=== PATIENT | male | born 1945 | race Caucasian/White ===

== ENCOUNTER → 2021-01-05 | Outpatient (CLI) | payer MEDICARE ==
--- NOTE | 2021-01-05 16:05 | CONS ---
CONSULTATION DATE OF SERVICE: 01/05/2021 This 75-year-old gentleman had been evaluated in [facility] for obstructive sleep apnea-hypopnea syndrome. HISTORY OF PRESENT ILLNESS/SLEEP-WAKE EVALUATION: Recently patient had a home sleep apnea test in another institution in October of this year, which showed severe obstructive sleep apnea-hypopnea syndrome with apnea-hypopnea index 51.1, and oxygen desaturation to 77%. The patient usual sleep schedule from 10 p.m. to 7-9 a.m. Sometimes he has problems with falling asleep. He snores and has episodes of stopped breathing during sleep. He grinds his teeth. He has episodes of gasping for air. Also patient has kicking movements during the sleep according to his . During the day, he feels very sleepy and may take naps whole day according to his . [place] Sleepiness Scale is a very high range of 17. No history of hypnagogic all hallucinations, cataplexy or sleep paralysis. PAST MEDICAL HISTORY: Positive for depression, coronary artery disease, diabetes mellitus, acid reflux. PAST SURGICAL HISTORY: CABG and stent insertions to coronary arteries, left knee replacement. MEDICATIONS: Atorvastatin 40 mg 3 times a week, allopurinol 300 mg once a day, bupropion 150 mg twice a day, 200 mg once a day, Januvia 50 mg once a day, isosorbide 30 mg once a day, clopidogrel 75 mg once a day, cyclobenzaprine 10 mg once a day, 325 mg up to 2 times a day, 20 mg patch started recently. SOCIAL HISTORY: Negative for smoking or using alcohol at the present time. FAMILY HISTORY: REVIEW OF SYSTEMS: Multiple awakenings from sleep, sleepiness during the day. No fevers. No double vision. No recent chest pain. No shortness of breath. No abdominal pain. No bleeding episodes. No blood in the urine. No seizure episodes. PHYSICAL EXAMINATION: GENERAL: gentleman without distress. VITAL SIGNS: BP 121/81, HR 76, RR around 20, height 5 feet 10 inches, weight 254.0, temperature 97.7, oxygen saturation at room air 94%, body mass index 36.5. HEENT: PERRLA, EOMI. Oropharynx extremely low position of soft palate. Mallampati 4. NECK: Wide neck 19-1/2 inches in circumference. LUNGS: Clear to percussion and to auscultation. Good air exchange. No wheezing or rhonchi. HEART: S1, S2 regular. No murmurs, gallops, or rubs. ABDOMEN: Obese. EXTREMITIES: No clubbing or cyanosis. ASSISTANT TEACHER PRIMARY: Awake, alert, and oriented X3. Cranial nerves 2 to 7 intact. There is no fasciculation or atrophy. noted. No focal deficits observed. Patient walked with a walker. IMPRESSION: 1. Severe obstructive sleep apnea-hypopnea syndrome by results of home sleep apnea test in October 2020 in another institution. The patient has multiple awakenings from sleep, extremely low position of soft palate, wide neck, significant daytime sleepiness. 2. Obesity. 3. Restless leg symptoms. 4. Possible periodic limb movements. 5. Depression. 6. Diabetes mellitus. 7. Coronary artery disease, status post CABG and stent insertion. 8. Acid reflux. 9. Status post left knee replacement. 10.Back problems. 11.History of basal cell carcinoma of the skin of the hand, treated surgically. PLAN: 1. CPAP/BiPAP titration for correction of respiratory abnormalities during sleep and to check for possible periodic limb movements. 2. Preferable position during sleep on the side. 3. No driving if patient feels any sleepiness. 4. I will see patient for follow up visit to explain results of testing and following plan. Thank you very much for referring this patient for consultation. Sincerely, Ayaz Rabago MD, PhD, FAASM Diplomat of [employer] [employer] Eclectic Doctor of [facility] [place] MMODL / IJN: [id number] /
== END ==
LOC: SLEEP 10:10
PROVIDERS: ATTEND Internal Medicine
DX: G47.33 Obstructive sleep apnea (adult) (pediatric) (principal); E66.9 Obesity, unspecified; G25.81 Restless legs syndrome; F32.9 Major depressive disorder, single episode, unspecified; E11.9 Type 2 diabetes mellitus without complications; K21.9 Gastro-esophageal reflux disease without esophagitis; I25.10 Atherosclerotic heart disease of native coronary artery without angina pectoris; Z68.36 Body mass index [BMI] 36.0-36.9, adult; Z95.1 Presence of aortocoronary bypass graft; Z96.652 Presence of left artificial knee joint; Z85.828 Personal history of other malignant neoplasm of skin; Z95.5 Presence of coronary angioplasty implant and graft
CPT/HCPCS: 99211

== ENCOUNTER → 2021-05-29 | Outpatient (CLI) | payer MEDICARE | END | disposition home or self-care (01) | LOC: LABWHC1 15:49 | PROVIDERS: ATTEND Psychiatry & Neurology Neurology | DX: Z01.812 Encounter for preprocedural laboratory examination (principal); Z20.822 Contact with and (suspected) exposure to COVID-19 | CPT/HCPCS: U0003; U0005 ==

== ENCOUNTER → 2021-05-31 | Outpatient (CLI) | payer MEDICARE ==
--- NOTE | 2021-05-31 20:25 | SFUN ---
SLEEP CENTER FOLLOW UP NOTE DATE OF SERVICE: 05/31/2021 INTERVAL HISTORY: 75-year-old gentleman has been followed in Sleep Center for treatment of obstructive sleep apnea-hypopnea syndrome. This is the first visit after patient received new CPAP equipment. The patient has difficulties to use the machine. He is using a full-face mask. He does not feel comfortable with that. He has back problems preparing for the back surgery on 06/02/2021 which is the day after tomorrow. Back problems create problems for the patient to sleep and also to use the machine. I checked his CPAP unit. It is in automatic regimen. Range of the pressure is 6-12. Average pressure 7.4. Usage 6 out of 30 nights and 2 out of 30 nights for more than 4 hours, average 3 hours per night. Leak is significant 41 L/minute. Apnea-hypopnea index increased to 15.7. CURRENT MEDICATIONS: Atorvastatin 40 mg 3 times a day, allopurinol 300 mg once a day, bupropion 150 mg twice a day, Januvia 50 mg once a day, isosorbide 30 mg once a day, clopidogrel 75 mg once a day, Cyclobenzaprine 10 mg once a day. PHYSICAL EXAMINATION: GENERAL: Patient in no distress. BP 124/90, HR 93, RR 16, weight 251 pounds, temperature 96.8, oxygen saturation at room air 92%. Oropharynx extremely low position of soft palate, Mallampati 4. NECK: Supple, no JVD. Thyroid is not palpable. LUNGS: Clear to percussion and to auscultation. Good air exchange. No wheezing or rhonchi. HEART: S1, S2 regular. No murmurs, gallops, or rubs. ABDOMEN: Slightly obese. Soft and nontender. Bowel sounds are present. No organomegaly appreciated. EXTREMITIES: No clubbing or cyanosis. EVP MANAGING DIRECTOR: Awake, alert, and oriented X3. Cranial nerves 2 to 7 intact. There is no fasciculation or atrophy. noted. No focal deficits observed. Patient walks with a walker. IMPRESSION: 1. Severe obstructive sleep apnea-hypopnea syndrome by results of sleep study in October of 2020 in another institution. The patient has difficulties with usage of CPAP unit, possibly secondary to a full-face mask and also significant back pain at the present time. 2. Back pain, back problems. The patient is preparing for back surgery on June 02, 2021. 3. Obesity. 4. History of restless leg symptoms. 5. Depression. 6. Diabetes mellitus. 7. Coronary artery disease, status post CABG and stent insertion. 8. Acid reflux. 9. Status post left knee replacement. 10.History of basal cell carcinoma of the skin of the hand, treated surgically. PLAN: 1. Prescription for nasal mask and chinstrap has been written. 2. Patient should use CPAP equipment every night for the whole night. 3. Watching weight. 4. Sleep hygiene with time in bed for at least 7-1/2 to 8 hours. 5. No driving if feeling sleepiness. The patient should not drive at the present time. 6. Followup visit in about 1-1/2 months to evaluate clinical response on treatment with different mask and make any necessary adjustments related to mask fitting, pressure and humidification. Hopefully after surgery, patient will feel better. No pain in the back and subsequently that improve the situation related to usage of the CPAP treatment. Thank you very much for allowing me to participate in management of your patient. Sincerely, Ayaz Rabago MD, PhD, FAASM Diplomat of [place] [employer] Sleep Medicine Board of [place] [employer] Dry House Operator [facility] [place] MMODL / IJN: [id number] /
== END ==
LOC: SLEEP 15:10
PROVIDERS: ATTEND Internal Medicine
DX: G47.33 Obstructive sleep apnea (adult) (pediatric) (principal); M54.5 Low back pain; E66.9 Obesity, unspecified; G25.81 Restless legs syndrome; F32.9 Major depressive disorder, single episode, unspecified; E11.9 Type 2 diabetes mellitus without complications; I25.10 Atherosclerotic heart disease of native coronary artery without angina pectoris; K21.9 Gastro-esophageal reflux disease without esophagitis; Z95.1 Presence of aortocoronary bypass graft; Z96.652 Presence of left artificial knee joint; Z85.828 Personal history of other malignant neoplasm of skin; Z79.84 Long term (current) use of oral hypoglycemic drugs; Z99.89 Dependence on other enabling machines and devices; Z79.899 Other long term (current) drug therapy; Z98.890 Other specified postprocedural states